=== PATIENT | female | born 1990 | race Caucasian/White ===

== ENCOUNTER 2018-03-18 01:17 | Emergency (ER) | payer SELFPAY ==
[~2018-03-18] VITALS: Ht 157.5 cm; Wt 86.4 kg
[2018-03-18 01:20] VITALS: BP 140/85
--- NOTE | 2018-03-18 01:28 | NUR ---
PT AMBULATED TO ER BED 01
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
[2018-03-18] MEDS ORDERED: predniSONE 20 MG TAB PO ONE (01:55)
[2018-03-18] MEDS ORDERED: FAMOTIDINE 20 MG TAB PO ONE (01:55)
[2018-03-18] MEDS ORDERED: diphenhydrAMINE 50 MG CAP PO ONE (01:55)
--- NOTE | 2018-03-18 02:28 | NUR ---
WAITING FOR ER MD DR FARRAR DISCHARGE INSTRUCTIONS AND ANY PRESCRIPTIONS.
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
[2018-03-18 03:03] VITALS: BP 123/59
--- NOTE | 2018-03-18 03:03 | NUR ---
Patient discharged with v/s stable. Written and verbal after care instructions given and explained. Patient alert, oriented and verbalized understanding of instructions. Ambulatory with steady gait. All questions addressed prior to discharge. ID band removed. Patient advised to follow up with PMD. Rx of PEPCID, PREDNISONE, BENADRYL given. Patient educated on indication of medication including possible reaction and side effects. Opportunity to ask questions provided and answered.
== END 2018-03-18 03:03 | disposition home or self-care (01) ==
LOC: MED 01:17
DX: L50.9 Urticaria, unspecified (principal); T50.995A Adverse effect of other drugs, medicaments and biological substances, initial encounter; Y92.89 Other specified places as the place of occurrence of the external cause
CPT/HCPCS: 96372; 99284; J0171; J7512; Q0163

== ENCOUNTER 2018-07-19 07:18 | Emergency (ER) | payer SELFPAY ==
[~2018-07-19] VITALS: Ht 160 cm; Wt 88.7 kg
[2018-07-19 07:27] VITALS: BP 109/58
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
[2018-07-19] MEDS ORDERED: IBUPROFEN 800 MG TAB PO ONE (08:05)
[2018-07-19 08:40] VITALS: BP 109/58
== END 2018-07-19 08:41 | disposition home or self-care (01) ==
LOC: MED 07:18
DX: S46.911A Strain of unspecified muscle, fascia and tendon at shoulder and upper arm level, right arm, initial encounter (principal); R11.10 Vomiting, unspecified; X58.XXXA Exposure to other specified factors, initial encounter; Y93.89 Activity, other specified; Y92.89 Other specified places as the place of occurrence of the external cause; Y99.8 Other external cause status
CPT/HCPCS: 73030; 81002; 81025; 99284

== ENCOUNTER 2018-11-07 17:38 | Emergency (ER) | payer MEDICAID ==
[~2018-11-07] VITALS: Ht 160 cm; Wt 86.2 kg
--- NOTE | 2018-11-07 17:46 | NUR ---
PT AMBULATES TO BED 7
[2018-11-07 17:51] VITALS: BP 120/60
--- NOTE | 2018-11-07 17:56 | NUR ---
AAO x4 27 yr old female with c/o cough, congestion, headache, rt ear pain, right neck lymphnodes swelling x3 days ---seen in urgent care yesterday rx azithromycin pt believes is not working hx--denies rx--- control
--- NOTE | 2018-11-07 18:54 | NUR ---
Patient being evaluated by physician at bedside.
[2018-11-07 19:12] VITALS: BP 110/74
--- NOTE | 2018-11-07 19:12 | NUR ---
Patient discharged with v/s stable. Written and verbal after care instructions given and explained. Patient alert, oriented and verbalized understanding of instructions. Ambulatory with steady gait. All questions addressed prior to discharge. ID band removed. Patient advised to follow up with PMD. Rx of Tessalon Perles, Naproxyn, Claritin given. Patient educated on indication of medication including possible reaction and side effects. Opportunity to ask questions provided and answered.
== END 2018-11-07 19:12 | disposition home or self-care (01) ==
LOC: MED 17:38
DX: H65.191 Other acute nonsuppurative otitis media, right ear (principal); B34.9 Viral infection, unspecified
CPT/HCPCS: 99283